=== PATIENT | female | born 1965 | race Caucasian/White ===

== ENCOUNTER 2017-09-12 08:36 | Emergency (ER) | payer BC, OTHER ==
[~2017-09-12] VITALS: Ht 168.9 cm; Wt 87.0 kg
[2017-09-12 08:49] VITALS: BP 150/86; PULSE 93; RESP 16; TEMP 97.5; O2SAT 96
--- NOTE | 2017-09-12 09:00 | PD ---
HPI Chief Complaint: Musculoskeletal Complaint Time Seen by Provider: 09:00 Travel History International Travel<30 days: No Contact w/Intl Traveler<30days: No Traveled to known affect area: No History of Present Illness HPI 52-year-old female came to the emergency room with history of left knee pain that started suddenly 2 days ago. Patient says it comes like spasm and the pain is intense. No history of injury. She's never had this kind of pain before. No history of fever or chills. She does not have history of gout or arthritis that she knows of. Vital signs are stable. Patient appears uncomfortable. She has a knee brace on that she put by herself trying over-the- counter. PFSH Past Medical History Narrative Medical List of her past medical, surgical, social and family history is reviewed from the nursing note. Diabetes: Yes Patient Takes Glucophage: No Diminished Hearing: No Hypertension: Yes Tetanus Vaccination: Unknown ?: Not Past Surgical History Tonsillectomy: Yes Social History Alcohol Use: Yes (SOC) Tobacco Use: No Substance Use: No Allergies-Medications (Allergen,Severity, Reaction): Coded Allergies: No Known Allergies (Unverified , 09/12/17) Comments No known drug allergies. Reported Meds & Prescriptions Reported Meds & Active Scripts Active Ibuprofen 600 Mg Tab 600 Mg PO Q6H PRN Reported Apidra Inj (Insulin Glulisine Inj) 1,000 Unit/10 Ml Vial Unknown Dose SQ DIRECTED Levemir Inj (Insulin Detemir) 1,000 unit/ 10 ML Vial 30 Units SQ PM Do not mix with any other Insulin. Levemir Inj (Insulin Detemir) 1,000 unit/ 10 ML Vial 28 Units SQ AM Do not mix with any other Insulin. Omeprazole 20 Mg Tab 20 Mg PO DAILY Amlodipine (Amlodipine Besylate) 10 Mg Tab 10 Mg PO DAILY Narrative Medication List of her home medications reviewed from the nursing note. Review of Systems Except as stated in HPI: all other systems reviewed are Neg Musculoskeletal: Positive: Pain Physical Exam Narrative GENERAL: Awake, alert, moderate distress SKIN: Focused skin assessment warm/dry. HEAD: Atraumatic. Normocephalic. EYES: Pupils equal and round. No scleral icterus. No injection or drainage. ENT: No nasal bleeding or discharge. Mucous membranes pink and moist. NECK: Trachea midline. No JVD. CARDIOVASCULAR: Regular rate and rhythm. No murmur appreciated. RESPIRATORY: No accessory muscle use. Clear to auscultation. Breath sounds equal bilaterally. GASTROINTESTINAL: Abdomen soft, non-tender, nondistended. Hepatic and splenic margins not palpable. MUSCULOSKELETAL: No obvious deformities. No clubbing. No cyanosis. Left ankle edema, left knee slightly swollen, decreased range of motion due to pain, skin not erythematous or warm to touch NEUROLOGICAL: Awake and alert. No obvious cranial nerve deficits. Motor grossly within normal limits. Normal speech. PSYCHIATRIC: Appropriate mood and affect; insight and judgment normal. Data Data Last Documented VS Orders Orders Complete Blood Count With Diff (09/12/17 09:05) Basic Metabolic Panel (Bmp) (09/12/17 09:05) C-Reactive Protein (Crp) (09/12/17 09:05) Knee, Complete (4vws) (09/12/17 ) Us Leg Venous Doppler (09/12/17 ) Acetamin-Hydrocod 325-5 Mg ([place] 5-325 (09/12/17 09:15) ^ Knee Immobilizer (09/12/17 10:52) Lidocai-Epi 1%-1:100,000 Inj (Xylocaine- (09/12/17 11:30) Synovial Fluid Crystals (09/12/17 11:38) Synovial Fl Cell Count + Diff (09/12/17 11:38) Wound Culture And Gram Stain (09/12/17 11:38) Ketorolac Inj (Toradol Inj) (09/12/17 12:00) Dextrose 50% In Jolly (Vial) Inj (D50w (Vi (09/12/17 12:30) Blood Glucose (09/12/17 12:58) Ed Discharge Order (09/12/17 13:14) Labs Laboratory Tests Test 09/12/17 09:15 09/12/17 11:43 White Blood Count 6.5 TH/MM3 Red Blood Count 4.17 MIL/MM3 Hemoglobin 13.6 GM/DL Hematocrit 40.9 % Mean Corpuscular Volume 98.0 FL Mean Corpuscular Hemoglobin 32.6 PG Mean Corpuscular Hemoglobin Concent 33.3 % Red Cell Distribution Width 12.6 % Platelet Count 312 TH/MM3 Mean Platelet Volume 7.9 FL Neutrophils (%) (Auto) 61.7 % Lymphocytes (%) (Auto) 25.7 % Monocytes (%) (Auto) 5.8 % Eosinophils (%) (Auto) 3.6 % Basophils (%) (Auto) 3.2 % Neutrophils # (Auto) 4.0 TH/MM3 Lymphocytes # (Auto) 1.7 TH/MM3 Monocytes # (Auto) 0.4 TH/MM3 Eosinophils # (Auto) 0.2 TH/MM3 Basophils # (Auto) 0.2 TH/MM3 CBC Comment DIFF FINAL Differential Comment Blood Urea Nitrogen 16 MG/DL Creatinine 0.75 MG/DL Random Glucose 149 MG/DL Calcium Level 8.6 MG/DL Sodium Level 135 MEQ/L Potassium Level 3.7 MEQ/L Chloride Level 100 MEQ/L Carbon Dioxide Level 27.4 MEQ/L Anion Gap 8 MEQ/L Estimat Glomerular Filtration Rate 81 ML/MIN C-Reactive Protein 1.61 MG/DL Synovial Fluid Color RED Synovial Fluid Appearance CLOUDY Synovial Fluid WBC 400 /MM3 Synovial Fluid RBC 507622 /MM3 Synovial Fluid Neutrophils 80 % Synovial Fluid Lymphocytes 18 % Synovial Fluid Eosinophils 2 % Synovial Fluid Differential Comment Synovial Fluid Crystals NONE MDM Medical Decision Making Medical Screen Exam Complete: Yes Emergency Medical Condition: Yes Medical Record Reviewed: Yes Differential Diagnosis DVT, gout, arthritis with effusion Narrative Course 10:42 AM most of the blood test results of back and within acceptable limit. Awaiting for the CRP. Ultrasound of the leg was negative for DVT and the x-ray shows trace effusion. 11:52 AM the knee joint was tapped. Patient tolerated the procedure well. Please refer to my procedure note. I have given her IV Toradol for pain control at this point. Awaiting for the test result for crystals to come back. The fluid was serosanguineous. 12:31 PM awaiting for the joint fluid results to come back. Meanwhile the nurse informing the patient's blood sugar had gone down to 44. I've ordered for D50 and food tray. The blood sugar will be rechecked in 45 minutes. 1:08 PM the joint crystal was negative. Nurse will check her blood sugar at 1: 15 and if that's, I will discharge her home. Procedures Procedure Narrative Arthrocentesis: The left knee joint was swabbed with Betadine 3. 1% lidocaine with epi was infiltrated 5 mL on the skin as well as subcutaneous tissue at the superior medial aspect of the patella. An 18-gauge needle was used to introduce into the joint for aspiration. 4 mL of serosanguineous fluid was aspirated. The needle was taken out and the area was dressed with gauze and Kerlix. Patient will have a immobilizer applied. Patient tolerated the procedure well. EKG Prior to Arrival: No Diagnosis Primary Impression: Knee joint pain Qualified Codes: M25.562 - Pain in left knee Additional Impressions: Knee joint effusion Qualified Codes: M25.462 - Effusion, left knee Hypoglycemia Referrals: Primary Care Physician 3 days Additional Instructions: Please keep the knee immobilizer on at all times except when taking a shower. Follow up with your primary care in couple days. Return to the ER if condition worsens or any other new concerns. Take the medication as per the prescription direction. Med/Other Pt SpecificInfo: Prescription(s) given Scripts Ibuprofen (Ibuprofen) 600 Mg Tab 600 MG PO Q6H Y for Pain/Inflammation, #40 TAB 0 Refills Prov: Eric Fan MD 09/12/17 Disposition: 01 DISCHARGE HOME Condition: Stable Eric Fan MD Sep 12, 2017 09:00
[2017-09-12] MEDS ORDERED: LEVEMIR SQ ×2 (09:03)
[2017-09-12] MEDS ORDERED: APIDINJ SQ (09:03)
[2017-09-12] MEDS ORDERED: AMLO10TA2 PO (09:03)
[2017-09-12] MEDS ORDERED: OMEP20TA93 PO (09:03)
[2017-09-12] MEDS ORDERED: ACETAMINOPHEN/HYDROcodone 325 MG/5 MG TAB PO ONE (09:15)
[2017-09-12 09:24] LABS: BASOPHIL # 0.2 TH/MM3 (0-0.2); BASOPHIL % 3.2 % (0.0-2.0); EOSINOPHIL # 0.2 TH/MM3 (0-0.4); EOSINOPHIL % 3.6 % (0.0-4.0); HEMATOCRIT 40.9 % (35.0-46.0); HEMOGLOBIN 13.6 GM/DL (11.6-15.3); LYMPH % 25.7 % (9.0-44.0); LYMPHOCYTE # 1.7 TH/MM3 (1.0-4.8); MEAN CORPUSCULAR HEMOGLOBIN 32.6 PG (27.0-34.0); MEAN CORPUSCULAR HGB CONC 33.3 % (32.0-36.0); MEAN PLATELET VOLUME 7.9 FL (7.0-11.0); MONO % 5.8 % (0.0-8.0); MONOCYTE # 0.4 TH/MM3 (0-0.9); NEUT % 61.7 % (16.0-70.0); PLATELET COUNT 312 TH/MM3 (150-450); RED BLOOD COUNT 4.17 MIL/MM3 (4.00-5.30); RED CELL DISTRIBUTION WIDTH 12.6 % (11.6-17.2); WHITE BLOOD COUNT 6.5 TH/MM3 (4.0-11.0)
--- NOTE | 2017-09-12 09:51 | RADRPT ---
EXAM DATE/TIME: 09/12/2017 09:17 [facility] COMPARISON: No previous studies available for comparison. INDICATIONS : Left knee pain. MEDICAL HISTORY : Hypertension. Diabetes. SURGICAL HISTORY : Tonsillectomy. ENCOUNTER: Initial ACUITY: 3 days PAIN SCORE: 3/10 LOCATION: Left leg. TECHNIQUE: Venous ultrasound of the leg was performed from the inguinal ligament to the proximal calf. Real-michel e, color Doppler and spectral tracing, compression and augmentation techniques were used. FINDINGS: There is normal compressibility of the deep venous system from the inguinal region to the proximal ca lf. No echogenic clot is seen in the lumen of the common femoral, femoral, popliteal, and posterior tibial veins. There is a normal response of the venous system to proximal and distal augmentation an d respiration. CONCLUSION: Normal examination. Swapnil Lobo MD on September 12, 2017 at 9:49 Board Certified Radiologist. This report was verified electronically.
[2017-09-12 09:57] LABS: CALCIUM 8.6 MG/DL (8.5-10.1)
[2017-09-12 09:58] LABS: BICARBONATE 27.4 MEQ/L (21.0-32.0)
[2017-09-12 10:01] LABS: CREATININE 0.75 MG/DL (0.50-1.00)
--- NOTE | 2017-09-12 10:14 | RADRPT ---
EXAM DATE/TIME: 09/12/2017 09:52 [facility] COMPARISON: No previous studies available for comparison. INDICATIONS : Left knee pain and swelling, No trauma MEDICAL HISTORY : None. SURGICAL HISTORY : None. ENCOUNTER: Initial ACUITY: 3 days PAIN SCORE: 9/10 LOCATION: Left knee FINDINGS: Trace joint effusion is evident. Fracture not appreciated. Patella intact. CONCLUSION: Trace joint effusion. Eugene Brady MD FACR on September 12, 2017 at 10:12 Board Certified Radiologist. This report was verified electronically.
[2017-09-12 10:35] VITALS: BP 142/80; PULSE 88; RESP 16; O2SAT 95
[2017-09-12 11:01] LABS: C-REACTIVE PROTEIN 1.61 MG/DL (0.00-0.30)
[2017-09-12] MEDS ORDERED: LIDOCAINE 1%/EPINEPHrine 1:100,000 SOLN 20 ML VIAL INFIL ONE (11:15)
[2017-09-12] MEDS ORDERED: LIDOCAINE 1%/EPINEPHrine 1:100,000 SOLN 50 ML VIAL INFIL ONE (11:30)
[2017-09-12] MEDS ORDERED: KETOROLAC TROMETHAMINE 30 MG/ML (IVP) VIAL IV PUSH ONE (12:00)
[2017-09-12] MEDS ORDERED: DEXTROSE 50% IN WATER 50 ML VIAL(D50) IV PUSH ONE (12:30)
[2017-09-12 12:51] LABS: WBC, SYNOVIAL FLUID 400 /MM3 (0-200)
[2017-09-12] MEDS ORDERED: IBUP-232 PO (13:09)
== END 2017-09-12 13:28 | disposition home or self-care (01) ==
LOC: PHED 08:36
DX: M25.462 Effusion, left knee (principal); M25.562 Pain in left knee; E11.649 Type 2 diabetes mellitus with hypoglycemia without coma; I10 Essential (primary) hypertension; Z79.4 Long term (current) use of insulin
CPT/HCPCS: 20610; 73564; 80048; 85025; 86140; 87070; 87205; 89051; 89060; 93971; 96374; 96375; 99285; J1885